=== PATIENT | male | born 1970 | race Caucasian/White ===

== ENCOUNTER 2023-06-09 19:59 | Emergency (ER) | payer OTHER, SELFPAY ==
[2023-06-09 20:05] VITALS: BP 169/119; PULSE 103; RESP 16; TEMP 36.7; O2SAT 100
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
[2023-06-09 20:33] LABS: Absolute Lymphocyte Count 2.35 X10^3/uL (0.83-4.51); Absolute Neutrophil Count 5.8 X10^3/uL (2.0-7.7); Basophil# 0.05 X10^3/uL; Basophil% 0.5 % (0-1); Eosinophil# 0.15 X10^3/uL; Eosinophils% 1.6 % (0-5); Hematocrit 44.7 % (40-54); Hemoglobin 14.9 g/dL (13.0-16.5); Lymphocyte # 2.35 X10^3/ul (0.83-4.51); Lymphocyte % 25.6 % (19-41); Mean Corp Hgb Conc 33.3 g/dL (32-36); Mean Corpuscular Hgb 29.6 pg (27.0-32.0); Mean Corpuscular Volume 88.9 fL (80-94); Mean Platelet Vol. 10.9 fl (6.2-12.0); Monocyte# 0.69 X10^3/uL; Monocyte% 7.5 % (0-10); NRBC Flagged by Analyzer 0 % (0-5); Neutrophil # 5.77 X10^3/uL (2.7-7.7); Neutrophil % 62.9 % (47-70); Platelet Count 329 K/mm3 (150-450); RBC Distribution Width CV 12.3 % (11.6-14.6); RBC Distribution Width SD 39.6 fl (35.1-43.9); Red Blood Count 5.03 M/mm3 (4.6-6.2); White Blood Count 9.2 K/mm3 (4.4-11.0)
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
--- NOTE | 2023-06-09 21:40 | ED.RN ---
PT ATTEMPTED TO AMBULATED TO RESTROOM, WAS UNABLE TO APPLY PRESSURE. URINAL GIVEN.
[2023-06-09] MEDS: Morphine 4 MG/ML Syringe IV (21:46)
[2023-06-09] MEDS: Ondansetron 4 MG/2 ML Vial IV (21:46)
[2023-06-09 21:53] VITALS: BP 168/119; PULSE 105; RESP 16; O2SAT 98
[2023-06-09 21:59] LABS: ALB/GLOB Ratio 0.9 RATIO (0.9-2.4); AST(SGOT) 58 U/L (15-37); Alanine Aminotransfer ALT/SGPT 60 U/L (16-61); Albumin, Serum 3.6 g/dL (3.2-5.0); Alkaline Phosphatase 104 U/L (45-117); Anion Gap 3 (5-15); BUN 18 mg/dL (7-18); BUN/Creat Ratio 16.4 RATIO (10-20); Calcium,Total 8.6 mg/dL (8.5-10.1); Chloride 109 mmol/L (98-107); EST Glomerular Filtration Rate 75 mL/min (>60); Est Glom Filt Rate - Afr Amer 91 mL/min (>60); Globulin 3.8 g/dL (2.2-4.2); Glucose 92 mg/dL (74-106); Potassium 4.1 mmol/L (3.5-5.1); Protein, Total 7.4 g/dL (6.4-8.2); Sodium Level 137 mmol/L (136-145)
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
[2023-06-09 23:47] LABS: Bacteria 0 SEEN /hpf (None Seen); Mucous, Urine 0 SEEN /hpf (<or=2+); Squamous Epithelial Cells - UA 0 SEEN /hpf (0-5)
[2023-06-09 23:54] LABS: Color, Urine Yellow (Yellow); Glucose, Dipstick Normal (Normal); Ketone-Dipstick Negative (Negative); Leukocyte Esterase-Dipstick Negative /ul (Negative); Nitrite-Dipstick Negative (Negative); Occult Blood-Urine 250 /ul (Negative); Protein-Dipstick 15 mg/dl (Negative); Urine Bilirubin Dipstick Negative (Negative); Urine Clarity Clear (Clear); Urine Urobilinogen Normal (Normal)
[2023-06-09 23:58] VITALS: BP 138/103; PULSE 103; RESP 16; TEMP 36.8; O2SAT 99
[2023-06-10 00:03] LABS: Red Blood Cells-Urine 10-25 SEEN /hpf (0-5); White Blood Cells 0 SEEN /hpf (0-5)
== END 2023-06-10 01:01 | disposition short-term general hospital (02) ==
PROVIDERS: Nurse Practitioner; Emergency Provider Emergency Medicine; Visit Provider Emergency Medicine
DX: S32.409A Unspecified fracture of unspecified acetabulum, initial encounter for closed fracture (principal); S39.012A Strain of muscle, fascia and tendon of lower back, initial encounter; V53.5XXA Driver of pick-up truck or van injured in collision with car, pick-up truck or van in traffic accident, initial encounter; R51.9 Headache, unspecified; R10.9 Unspecified abdominal pain; R26.2 Difficulty in walking, not elsewhere classified; R03.0 Elevated blood-pressure reading, without diagnosis of hypertension
CPT/HCPCS: 70450; 71260; 72125; 73700; 74177; 80053; 81001; 85025; 96374; 96375; 99285; Q9967; A4216; J2405